=== PATIENT | male | born 1965 | race Caucasian/White ===

== ENCOUNTER 2017-08-06 06:52 | Emergency (ER) | payer OTHER ==
[2017-08-06 07:01] VITALS: BP 135/93; PULSE 100; RESP 16; TEMP 97.1; O2SAT 98
== END 2017-08-06 08:15 | disposition home or self-care (01) | DRG 563 ==
LOC: ED 06:52
DX: S83.92XA Sprain of unspecified site of left knee, initial encounter (principal); S83.91XA Sprain of unspecified site of right knee, initial encounter; W01.0XXA Fall on same level from slipping, tripping and stumbling without subsequent striking against object, initial encounter; Y92.59 Other trade areas as the place of occurrence of the external cause
CPT/HCPCS: 73562; 99282